=== PATIENT | male | born 1970 | race Two or more races ===

== ENCOUNTER 2021-06-04 11:55 | Inpatient (IN) | payer OTHER ==
[~2021-06-04] VITALS: Ht 185.4 cm; Wt 117.0 kg
[2021-06-04] MEDS ORDERED: cloNIDine HCL 0.1 MG TAB ONE (12:04)
[2021-06-04] MEDS ORDERED: cloNIDine HCL 0.1 MG TAB PO ONE (12:30)
[2021-06-04 15:16] LABS: Albumin 2.5 g/dL (3.4-5.0); Basophils # (auto) 0.1 10 ^3/uL (0-0.2); Basophils % (auto) 0.7 % (0.0-2.0); Calcium 7.6 mg/dL (8.5-10.1); Eosinophils # (auto) 0.1 10 ^3/uL (0-0.8); Eosinophils % (auto) 1.2 % (0.0-7.0); Hematocrit 39.1 % (41.0-53.0); Hemoglobin 12.8 g/dL (13.5-17.5); Lymphocytes % (auto) 9.3 % (10.0-50.0); Mean Corpuscular Hemoglobin 29.4 pg (28.0-32.0); Mean Corpuscular Hgb Conc. 32.9 g/dL (32.0-36.0); Mean Corpuscular Volume 89.5 fL (80.0-100.0); Monocytes # (auto) 0.6 10 ^3/uL (0-1.3); Monocytes % (auto) 6.1 % (0.0-12.0); Neutrophils # (auto) 8.6 10 ^3/uL (1.6-8.6); Neutrophils % (auto) 82.7 % (37.0-80.0); Nucleated Red Blood Cells % 0.1 %; Potassium 4.2 mmol/L (3.5-5.1); Red Blood Cells 4.37 10^6/uL (4.5-5.90); Red Cell Distribution Width 14.4 % (11.8-14.3); White Blood Cell 10.4 10^3/uL (4.4-10.8)
[2021-06-04 15:20] LABS: BUN/Creatinine Ratio 9.7; Bilirubin, Total 0.9 mg/dL (0.2-1.0); Total Protein 5.5 g/dL (6.4-8.2)
[2021-06-04 15:37] LABS: Urine Bacteria NONE SEEN /hpf (None Seen); Urine Blood 1+ /uL (Negative); Urine Hyaline Cast FEW /lpf (0 - 2); Urine Specific Gravity 1.012 (1.001-1.035); Urine WBC 2 /hpf (0 - 3)
[2021-06-04] MEDS ORDERED: ACETAMINOPHEN 325 MG TAB PO PRN (22:30)
[2021-06-04] MEDS ORDERED: ONDANSETRON HCL 4 MG/2 ML VIAL IV PRN (22:30)
[2021-06-05] MEDS: cloNIDine HCL 0.1 MG TAB PO PRN (00:47)
[2021-06-05 03:41] VITALS: BP 155/104
[2021-06-05] MEDS ORDERED: LISI-716 PO (04:02)
[2021-06-05] MEDS ORDERED: ATOR10TA PO (04:02)
[2021-06-05 05:30] VITALS: BP 148/88
[2021-06-05 06:12] LABS: Basophils # (auto) 0 10 ^3/uL (0-0.2); Basophils % (auto) 0.4 % (0.0-2.0); Eosinophils # (auto) 0.1 10 ^3/uL (0-0.8); Eosinophils % (auto) 1.3 % (0.0-7.0); Hematocrit 35.5 % (41.0-53.0); Hemoglobin 11.8 g/dL (13.5-17.5); Lymphocytes # (auto) 0.7 10 ^3/uL (0.4-5.4); Lymphocytes % (auto) 8.7 % (10.0-50.0); Mean Corpuscular Hemoglobin 29.5 pg (28.0-32.0); Mean Corpuscular Hgb Conc. 33.2 g/dL (32.0-36.0); Mean Corpuscular Volume 88.7 fL (80.0-100.0); Monocytes # (auto) 0.6 10 ^3/uL (0-1.3); Neutrophils # (auto) 7.1 10 ^3/uL (1.6-8.6); Neutrophils % (auto) 82.6 % (37.0-80.0); Nucleated Red Blood Cells % 0.1 %; Red Cell Distribution Width 14.3 % (11.8-14.3); White Blood Cell 8.6 10^3/uL (4.4-10.8)
[2021-06-05 06:43] LABS: BUN/Creatinine Ratio 9.9; Bilirubin, Total 0.6 mg/dL (0.2-1.0); Calcium 7.5 mg/dL (8.5-10.1); Total Protein 4.8 g/dL (6.4-8.2)
[2021-06-05 09:04] VITALS: BP 152/91
[2021-06-05] MEDS: amLODIPine BESYLATE 5 MG TAB PO SCH (09:18)
[2021-06-05] MEDS: PANTOPRAZOLE 40 MG TAB PO SCH (09:18)
[2021-06-05 13:00] VITALS: BP 145/82
[2021-06-05 16:30] VITALS: BP 149/88
[2021-06-05 18:53] LABS: Amphetamine Screen, Urine NEGATIVE (NEGATIVE); Barbiturate Scree,Urine NEGATIVE (NEGATIVE); Benzodiazephine Screen, Urine NEGATIVE (NEGATIVE); Cannabinoid Screen, Urine NEGATIVE (NEGATIVE); Cocaine Screen, Urine NEGATIVE (NEGATIVE); Opiate Scree,Urine NEGATIVE (NEGATIVE); Phencyclidine Screen, Urine NEGATIVE (NEGATIVE)
[2021-06-05 22:00] VITALS: BP 154/90
[2021-06-06 05:00] VITALS: BP 165/88
[2021-06-06] MEDS: cloNIDine HCL 0.1 MG TAB PO PRN ×2 (05:29→17:33)
[2021-06-06 06:29] LABS: Basophils # (auto) 0 10 ^3/uL (0-0.2); Basophils % (auto) 0.4 % (0.0-2.0); Eosinophils # (auto) 0 10 ^3/uL (0-0.8); Eosinophils % (auto) 0.4 % (0.0-7.0); Hematocrit 36.7 % (41.0-53.0); Hemoglobin 12.1 g/dL (13.5-17.5); Lymphocytes # (auto) 0.9 10 ^3/uL (0.4-5.4); Lymphocytes % (auto) 10.9 % (10.0-50.0); Mean Corpuscular Hemoglobin 29.3 pg (28.0-32.0); Mean Corpuscular Hgb Conc. 33.1 g/dL (32.0-36.0); Mean Corpuscular Volume 88.7 fL (80.0-100.0); Monocytes # (auto) 0.9 10 ^3/uL (0-1.3); Monocytes % (auto) 11.9 % (0.0-12.0); Neutrophils # (auto) 6.1 10 ^3/uL (1.6-8.6); Neutrophils % (auto) 76.4 % (37.0-80.0); Nucleated Red Blood Cells % 0.2 %; Red Blood Cells 4.14 10^6/uL (4.5-5.90); Red Cell Distribution Width 14.5 % (11.8-14.3)
[2021-06-06 07:13] LABS: Potassium 3.9 mmol/L (3.5-5.1)
[2021-06-06 07:23] LABS: BUN/Creatinine Ratio 8.6; Calcium 7.6 mg/dL (8.5-10.1)
[2021-06-06 09:00] VITALS: BP 156/81
[2021-06-06] MEDS: PANTOPRAZOLE 40 MG TAB PO SCH (09:25)
[2021-06-06] MEDS: amLODIPine BESYLATE 5 MG TAB PO SCH (09:26)
[2021-06-06 09:59] LABS: Protein, Urine 371.9 mg/dL (0.0-11.9)
[2021-06-06] MEDS: ALBUMIN 25% 50 ML IV SCH ×2 (11:13→18:37)
[2021-06-06 13:00] VITALS: BP 152/72
[2021-06-06] MEDS: FUROSEMIDE 40 MG/4 ML VIAL IV SCH ×2 (14:05→21:48)
[2021-06-06] MEDS: guaiFENesin-DM 100/10mg/5ml SYR PO PRN (18:37)
[2021-06-06] MEDS: CARVEDILOL 3.125 MG TAB PO SCH (21:48)
[2021-06-06 22:00] VITALS: BP 152/82
[2021-06-07 05:00] VITALS: BP 157/79
[2021-06-07] MEDS: FUROSEMIDE 40 MG/4 ML VIAL IV SCH ×3 (06:03→22:11)
[2021-06-07 06:08] LABS: Potassium 3.8 mmol/L (3.5-5.1)
[2021-06-07 06:12] LABS: BUN/Creatinine Ratio 8.6
[2021-06-07 09:00] VITALS: BP 148/76
[2021-06-07] MEDS: PANTOPRAZOLE 40 MG TAB PO SCH (09:26)
[2021-06-07] MEDS: amLODIPine BESYLATE 5 MG TAB PO SCH (09:26)
[2021-06-07] MEDS: CARVEDILOL 3.125 MG TAB PO SCH ×2 (09:27→22:13)
[2021-06-07] MEDS: guaiFENesin-DM 100/10mg/5ml SYR PO PRN ×2 (09:34→22:14)
[2021-06-07 13:00] VITALS: BP 143/90
[2021-06-07 17:00] VITALS: BP 137/66
[2021-06-07] MEDS ORDERED: VANCOMYCIN 1GM/250ML 0 ML IV ONE (20:35)
[2021-06-07 22:00] VITALS: BP 151/79
[2021-06-08 05:00] VITALS: BP 156/67
[2021-06-08 05:26] LABS: Calcium 7.8 mg/dL (8.5-10.1); Potassium 3.4 mmol/L (3.5-5.1)
[2021-06-08 05:31] LABS: BUN/Creatinine Ratio 8.9
[2021-06-08 09:00] VITALS: BP 151/81
[2021-06-08] MEDS: amLODIPine BESYLATE 5 MG TAB PO SCH (09:28)
[2021-06-08] MEDS: CARVEDILOL 3.125 MG TAB PO SCH ×2 (09:29→22:17)
[2021-06-08] MEDS: PANTOPRAZOLE 40 MG TAB PO SCH (09:30)
[2021-06-08] MEDS: FUROSEMIDE 40 MG/4 ML VIAL IV SCH (09:30)
[2021-06-08] MEDS: guaiFENesin-DM 100/10mg/5ml SYR PO PRN (09:30)
[2021-06-08 13:00] VITALS: BP 153/79
[2021-06-08 17:17] VITALS: BP 141/81
[2021-06-08] MEDS: FUROSEMIDE 40 MG TAB PO SCH (17:29)
[2021-06-08 22:00] VITALS: BP 144/77
[2021-06-09] MEDS: cloNIDine HCL 0.1 MG TAB PO PRN (00:09)
[2021-06-09 05:00] VITALS: BP 157/88
[2021-06-09] MEDS: FUROSEMIDE 40 MG TAB PO SCH ×2 (05:47→18:25)
[2021-06-09 06:14] LABS: Potassium 3.4 mmol/L (3.5-5.1)
[2021-06-09 06:27] LABS: BUN/Creatinine Ratio 8.7; Calcium 7.9 mg/dL (8.5-10.1)
[2021-06-09 08:59] VITALS: BP 158/85
[2021-06-09] MEDS: CARVEDILOL 3.125 MG TAB PO SCH ×2 (09:03→21:25)
[2021-06-09] MEDS: PANTOPRAZOLE 40 MG TAB PO SCH (09:03)
[2021-06-09] MEDS: amLODIPine BESYLATE 5 MG TAB PO SCH (09:03)
[2021-06-09 13:30] VITALS: BP 142/92
[2021-06-09 16:30] VITALS: BP 147/85
[2021-06-09 22:00] VITALS: BP 166/96
[2021-06-10 05:00] VITALS: BP 156/81
[2021-06-10] MEDS: FUROSEMIDE 40 MG TAB PO SCH ×2 (05:43→18:08)
[2021-06-10 09:18] VITALS: BP 155/81
[2021-06-10] MEDS: PANTOPRAZOLE 40 MG TAB PO SCH (10:00)
[2021-06-10] MEDS: amLODIPine BESYLATE 5 MG TAB PO SCH (10:00)
[2021-06-10] MEDS: CARVEDILOL 3.125 MG TAB PO SCH ×2 (10:01→22:54)
[2021-06-10 13:19] VITALS: BP 155/89
[2021-06-10] MEDS ORDERED: ERGOCALCIFEROL 50,000 UNIT(1.25MG) CAP PO SCH (16:15)
[2021-06-10 17:30] VITALS: BP 158/81
[2021-06-10 22:00] VITALS: BP 149/82
[2021-06-11 05:20] VITALS: BP 153/79
[2021-06-11] MEDS: FUROSEMIDE 40 MG TAB PO SCH ×2 (06:16→17:41)
[2021-06-11 09:00] VITALS: BP 145/100
[2021-06-11] MEDS: CARVEDILOL 3.125 MG TAB PO SCH ×2 (09:41→22:26)
[2021-06-11] MEDS: PANTOPRAZOLE 40 MG TAB PO SCH (09:42)
[2021-06-11] MEDS: amLODIPine BESYLATE 5 MG TAB PO SCH (09:42)
[2021-06-11 13:01] VITALS: BP 148/93
[2021-06-11 13:01] LABS: % Iron Saturation 31.5 % (20-55)
[2021-06-11 13:50] LABS: Albumin 2.4 g/dL (3.4-5.0); Calcium 7.9 mg/dL (8.5-10.1); Potassium 3.5 mmol/L (3.5-5.1)
[2021-06-11 14:09] LABS: BUN/Creatinine Ratio 8.7; Bilirubin, Total 0.8 mg/dL (0.2-1.0); Phosphorus 3.4 mg/dL (2.5-4.90); Total Protein 5.7 g/dL (6.4-8.2)
[2021-06-11 17:17] VITALS: BP 158/77
[2021-06-11 22:00] VITALS: BP 139/78
[2021-06-11] MEDS: SODIUM CHLORIDE 0.9% 1,000 ML IV SCH (22:25)
[2021-06-12 05:00] VITALS: BP 139/75
[2021-06-12] MEDS: FUROSEMIDE 40 MG TAB PO SCH ×2 (05:51→17:59)
[2021-06-12 07:01] LABS: BUN/Creatinine Ratio 8.4; Calcium 7.4 mg/dL (8.5-10.1); Potassium 3.3 mmol/L (3.5-5.1)
[2021-06-12] MEDS: SODIUM CHLORIDE 0.9% 1,000 ML IV SCH ×2 (08:05→21:25)
[2021-06-12 09:00] VITALS: BP 145/95
[2021-06-12] MEDS: CARVEDILOL 3.125 MG TAB PO SCH ×2 (10:29→21:22)
[2021-06-12] MEDS: amLODIPine BESYLATE 5 MG TAB PO SCH (10:29)
[2021-06-12] MEDS: PANTOPRAZOLE 40 MG TAB PO SCH (10:29)
[2021-06-12 12:34] VITALS: BP 134/89
[2021-06-12 16:41] VITALS: BP 148/91
[2021-06-12 21:57] VITALS: BP 134/60
[2021-06-13 05:00] VITALS: BP 151/88
[2021-06-13] MEDS: FUROSEMIDE 40 MG TAB PO SCH ×2 (05:44→18:00)
[2021-06-13 08:54] VITALS: BP 131/81
[2021-06-13] MEDS: CARVEDILOL 3.125 MG TAB PO SCH (09:52)
[2021-06-13] MEDS: amLODIPine BESYLATE 5 MG TAB PO SCH (09:53)
[2021-06-13] MEDS: PANTOPRAZOLE 40 MG TAB PO SCH (09:53)
[2021-06-13] MEDS: SODIUM CHLORIDE 0.9% 1,000 ML IV SCH (10:45)
[2021-06-13] MEDS ORDERED: POTASSIUM EFFERVESENT TAB 25 MEQ PO ONE (11:30)
[2021-06-13 13:00] VITALS: BP_SYST 126; BP_SYST 135; BP_DIAS 74; BP_DIAS 75
[2021-06-13 17:00] VITALS: BP 158/87
[2021-06-13 17:44] VITALS: BP 131/81
== END 2021-06-13 18:11 | disposition home or self-care (01) | DRG 682 ==
LOC: ER 11:55 → OVERFLOW 22:19 → WEST WING 23:43
PROVIDERS: ADMIT Nurse Practitioner; ATTEND Internal Medicine
DX: N17.9 Acute kidney failure, unspecified (principal); E43 Unspecified severe protein-calorie malnutrition; I11.0 Hypertensive heart disease with heart failure; Z68.33 Body mass index [BMI] 33.0-33.9, adult; E78.00 Pure hypercholesterolemia, unspecified; E11.9 Type 2 diabetes mellitus without complications; I50.9 Heart failure, unspecified; Z20.822 Contact with and (suspected) exposure to COVID-19; E66.01 Morbid (severe) obesity due to excess calories; E11.40 Type 2 diabetes mellitus with diabetic neuropathy, unspecified; F19.10 Other psychoactive substance abuse, uncomplicated; E78.5 Hyperlipidemia, unspecified; R80.9 Proteinuria, unspecified; N04.9 Nephrotic syndrome with unspecified morphologic changes; E55.9 Vitamin D deficiency, unspecified; E87.6 Hypokalemia; Z72.0 Tobacco use; Z68.38 Body mass index [BMI] 38.0-38.9, adult; Z83.3 Family history of diabetes mellitus
CPT/HCPCS: 36415; 71045; 73090; 76775; 80048; 80053; 80061; 80307; 81001; 82306; 82570; 83036; 83520; 83540; 83550; 83880; 83970; 84100; 84156; 84484; 85025; 86038; 86160; 86256; 87426; 93005; 93306; G0378; J2405

== ENCOUNTER 2021-12-04 11:19 | Inpatient (IN) | payer MEDICAID, OTHER ==
[~2021-12-04] VITALS: Ht 185.4 cm; Wt 110.8 kg
[~2021-12-04 11:19] MED LIST: ATOR10TA PO; LISI-716 PO
[2021-12-04] MEDS ORDERED: cefTRIAXone 1GM/50ML D5W 50 ML IV ONE (12:30)
[2021-12-04 12:41] LABS: Basophils # (auto) 0 10 ^3/uL (0-0.2); Basophils % (auto) 0.3 % (0.0-2.0); Eosinophils # (auto) 0.2 10 ^3/uL (0-0.8); Eosinophils % (auto) 1.3 % (0.0-7.0); Hematocrit 31.1 % (41.0-53.0); Hemoglobin 10.1 g/dL (13.5-17.5); Lymphocytes # (auto) 0.7 10 ^3/uL (0.4-5.4); Lymphocytes % (auto) 4.7 % (10.0-50.0); Mean Corpuscular Hemoglobin 28.4 pg (28.0-32.0); Mean Corpuscular Hgb Conc. 32.5 g/dL (32.0-36.0); Mean Corpuscular Volume 87.2 fL (80.0-100.0); Monocytes # (auto) 1.1 10 ^3/uL (0-1.3); Monocytes % (auto) 7.2 % (0.0-12.0); Neutrophils # (auto) 12.9 10 ^3/uL (1.6-8.6); Neutrophils % (auto) 86.5 % (37.0-80.0); Red Blood Cells 3.57 10^6/uL (4.5-5.90); Red Cell Distribution Width 13.2 % (11.8-14.3); White Blood Cell 14.9 10^3/uL (4.4-10.8)
[2021-12-04 12:55] LABS: Albumin 2.7 g/dL (3.4-5.0); BUN/Creatinine Ratio 12.7; Calcium 8.8 mg/dL (8.5-10.1); Potassium 4.7 mmol/L (3.5-5.1)
[2021-12-04 12:58] LABS: Bilirubin, Total 0.5 mg/dL (0.2-1.0); Total Protein 7.3 g/dL (6.4-8.2)
[2021-12-04] MEDS ORDERED: DEXTROSE (50%) 50ML SYRG IV PRN (13:45)
[2021-12-04] MEDS ORDERED: TEMAZEPAM 15 MG CAP PO PRN (13:45)
[2021-12-04] MEDS ORDERED: HYDROcodone-ACET 5/325MG TAB PO PRN (13:45)
[2021-12-04] MEDS ORDERED: ONDANSETRON HCL 4 MG/2 ML VIAL IV PRN (13:45)
[2021-12-04] MEDS ORDERED: DOCUSATE SOD 100 MG CAP PO PRN (13:45)
[2021-12-04] MEDS ORDERED: NITROGLYCERIN 0.4 MG SL TAB SL PRN (13:45)
[2021-12-04] MEDS ORDERED: MORPHINE SULFATE INJ 2 MG/ml SYRG IV PRN (13:45)
[2021-12-04] MEDS ORDERED: ACETAMINOPHEN 325 MG TAB PO PRN (13:45)
[2021-12-04] MEDS: PIPERACILLIN-TAZOB 2.25GM 50 ML IV SCH ×2 (16:00→21:38)
[2021-12-04] MEDS: InsuLIN REG 1unit/0.01ml Soln (100units/ml) SC SCH ×2 (17:00→22:13)
[2021-12-04] MEDS: ACCU-CHEK COMFORT CURVE STRIP VI SCH ×2 (17:18→22:14)
[2021-12-04] MEDS: ASCORBIC ACID 500 MG TAB PO SCH (21:37)
[2021-12-04 23:43] VITALS: BP 165/82
[2021-12-05 05:13] LABS: Basophils # (auto) 0 10 ^3/uL (0-0.2); Basophils % (auto) 0.2 % (0.0-2.0); Eosinophils # (auto) 0.2 10 ^3/uL (0-0.8); Eosinophils % (auto) 1.3 % (0.0-7.0); Hematocrit 29.2 % (41.0-53.0); Hemoglobin 9.7 g/dL (13.5-17.5); Lymphocytes # (auto) 0.9 10 ^3/uL (0.4-5.4); Lymphocytes % (auto) 6.4 % (10.0-50.0); Mean Corpuscular Hemoglobin 28.5 pg (28.0-32.0); Mean Corpuscular Hgb Conc. 33.2 g/dL (32.0-36.0); Mean Corpuscular Volume 86.1 fL (80.0-100.0); Monocytes # (auto) 1.2 10 ^3/uL (0-1.3); Monocytes % (auto) 8.5 % (0.0-12.0); Neutrophils # (auto) 11.5 10 ^3/uL (1.6-8.6); Neutrophils % (auto) 83.6 % (37.0-80.0); Red Blood Cells 3.39 10^6/uL (4.5-5.90); Red Cell Distribution Width 13.3 % (11.8-14.3); White Blood Cell 13.8 10^3/uL (4.4-10.8)
[2021-12-05 05:30] VITALS: BP 172/84
[2021-12-05 05:32] LABS: Potassium 4.5 mmol/L (3.5-5.1)
[2021-12-05 05:38] LABS: Albumin 2.3 g/dL (3.4-5.0); Bilirubin, Total 0.6 mg/dL (0.2-1.0); Calcium 8.6 mg/dL (8.5-10.1); Total Protein 6.5 g/dL (6.4-8.2)
[2021-12-05] MEDS: InsuLIN REG 1unit/0.01ml Soln (100units/ml) SC SCH ×4 (06:17→22:00)
[2021-12-05] MEDS: PIPERACILLIN-TAZOB 2.25GM 50 ML IV SCH ×3 (06:18→22:35)
[2021-12-05] MEDS: ACCU-CHEK COMFORT CURVE STRIP VI SCH ×4 (06:18→22:00)
[2021-12-05 09:00] VITALS: BP 150/74
[2021-12-05] MEDS ORDERED: VANCOMYCIN PER PHARMACY 0 MG IV SCH (09:15)
[2021-12-05] MEDS: ZINC SULFATE 220mg CAP or TAB PO SCH (09:17)
[2021-12-05] MEDS: MULTIPLE VITAMIN TAB PO SCH (09:17)
[2021-12-05] MEDS: ASCORBIC ACID 500 MG TAB PO SCH ×2 (09:18→22:35)
[2021-12-05] MEDS: PANTOPRAZOLE 40 MG TAB PO SCH (09:22)
[2021-12-05] MEDS: amLODIPine BESYLATE 5 MG TAB PO SCH (09:22)
[2021-12-05] MEDS: HEPARIN SODIUM (PORCINE) 5000 UNITS/ML 1ML VIAL SC SCH ×2 (09:23→22:36)
[2021-12-05] MEDS: VANCOMYCIN 1GM/250ML 250 ML IV SCH (11:13)
[2021-12-05 13:00] VITALS: BP 128/73
[2021-12-05 22:00] VITALS: BP 140/65
[2021-12-05] MEDS ORDERED: LOPERAMIDE HCL 2 MG CAP/TAB PO PRN (22:00)
[2021-12-05] MEDS: ATORVASTATIN 20 MG TAB PO SCH (22:35)
[2021-12-06 05:00] VITALS: BP 162/85
[2021-12-06] MEDS: PIPERACILLIN-TAZOB 2.25GM 50 ML IV SCH ×3 (06:10→21:26)
[2021-12-06] MEDS: InsuLIN REG 1unit/0.01ml Soln (100units/ml) SC SCH ×4 (06:31→21:43)
[2021-12-06] MEDS: ACCU-CHEK COMFORT CURVE STRIP VI SCH ×4 (06:31→21:43)
[2021-12-06 08:25] LABS: Basophils # (auto) 0 10 ^3/uL (0-0.2); Basophils % (auto) 0.2 % (0.0-2.0); Eosinophils # (auto) 0.2 10 ^3/uL (0-0.8); Eosinophils % (auto) 1.9 % (0.0-7.0); Hematocrit 29.6 % (41.0-53.0); Hemoglobin 9.4 g/dL (13.5-17.5); Lymphocytes # (auto) 0.9 10 ^3/uL (0.4-5.4); Mean Corpuscular Hemoglobin 27.7 pg (28.0-32.0); Mean Corpuscular Hgb Conc. 31.9 g/dL (32.0-36.0); Mean Corpuscular Volume 86.9 fL (80.0-100.0); Monocytes # (auto) 1.1 10 ^3/uL (0-1.3); Monocytes % (auto) 8.3 % (0.0-12.0); Neutrophils # (auto) 10.6 10 ^3/uL (1.6-8.6); Neutrophils % (auto) 82.6 % (37.0-80.0); Red Cell Distribution Width 13.2 % (11.8-14.3); White Blood Cell 12.8 10^3/uL (4.4-10.8)
[2021-12-06 08:32] LABS: Calcium 8.4 mg/dL (8.5-10.1); Potassium 4.2 mmol/L (3.5-5.1)
[2021-12-06 08:40] LABS: Phosphorus 3.5 mg/dL (2.5-4.90); Uric Acid 7.3 mg/dL (3.5-7.2)
[2021-12-06 08:58] VITALS: BP 170/87
[2021-12-06] MEDS: VANCOMYCIN 1GM/250ML 250 ML IV SCH (09:48)
[2021-12-06] MEDS: MULTIPLE VITAMIN TAB PO SCH (09:50)
[2021-12-06] MEDS: ZINC SULFATE 220mg CAP or TAB PO SCH (09:50)
[2021-12-06] MEDS: ASCORBIC ACID 500 MG TAB PO SCH ×2 (09:51→21:26)
[2021-12-06] MEDS: PANTOPRAZOLE 40 MG TAB PO SCH (09:51)
[2021-12-06] MEDS: amLODIPine BESYLATE 5 MG TAB PO SCH (09:51)
[2021-12-06] MEDS: HEPARIN SODIUM (PORCINE) 5000 UNITS/ML 1ML VIAL SC SCH ×2 (10:13→21:41)
[2021-12-06] MEDS: METOPROLOL TARTRATE 25 MG TAB PO SCH ×2 (12:38→21:32)
[2021-12-06 13:00] VITALS: BP 150/79
[2021-12-06 17:21] VITALS: BP 152/73
[2021-12-06] MEDS: ATORVASTATIN 20 MG TAB PO SCH (21:27)
[2021-12-06 22:00] VITALS: BP 145/90
[2021-12-07 05:00] VITALS: BP 158/75
[2021-12-07] MEDS: PIPERACILLIN-TAZOB 2.25GM 50 ML IV SCH ×3 (05:17→22:05)
[2021-12-07] MEDS: ACCU-CHEK COMFORT CURVE STRIP VI SCH ×4 (06:41→22:23)
[2021-12-07] MEDS: InsuLIN REG 1unit/0.01ml Soln (100units/ml) SC SCH ×4 (06:42→22:24)
[2021-12-07 06:58] LABS: Basophils # (auto) 0 10 ^3/uL (0-0.2); Basophils % (auto) 0.4 % (0.0-2.0); Eosinophils # (auto) 0.4 10 ^3/uL (0-0.8); Eosinophils % (auto) 3.4 % (0.0-7.0); Hematocrit 27.6 % (41.0-53.0); Hemoglobin 8.9 g/dL (13.5-17.5); Lymphocytes # (auto) 1.2 10 ^3/uL (0.4-5.4); Lymphocytes % (auto) 8.9 % (10.0-50.0); Mean Corpuscular Hemoglobin 27.7 pg (28.0-32.0); Mean Corpuscular Hgb Conc. 32.2 g/dL (32.0-36.0); Mean Corpuscular Volume 86.1 fL (80.0-100.0); Monocytes # (auto) 1.2 10 ^3/uL (0-1.3); Monocytes % (auto) 8.8 % (0.0-12.0); Neutrophils # (auto) 10.2 10 ^3/uL (1.6-8.6); Neutrophils % (auto) 78.5 % (37.0-80.0); Red Blood Cells 3.21 10^6/uL (4.5-5.90); Red Cell Distribution Width 13.5 % (11.8-14.3)
[2021-12-07 07:11] LABS: Partial Thromboplastin Time 30.8 sec (23.6-33.0)
[2021-12-07 07:13] LABS: Calcium 8.4 mg/dL (8.5-10.1); Potassium 4.3 mmol/L (3.5-5.1)
[2021-12-07 07:22] LABS: BUN/Creatinine Ratio 10.6; Bilirubin, Total 0.3 mg/dL (0.2-1.0); Total Protein 6.1 g/dL (6.4-8.2)
[2021-12-07 08:00] VITALS: BP 136/75
[2021-12-07] MEDS ORDERED: ceFAZolin 1GM VL ONE (08:02)
[2021-12-07] MEDS ORDERED: LIDOCAINE 1%HCL (LOCAL ANESTH) 10 ML MDV ONE (08:02)
[2021-12-07] MEDS ORDERED: BUPIVACAINE 0.25% INJ 50ML VIAL ONE (08:02)
[2021-12-07] MEDS ORDERED: fentaNYL CITRATE 100 MCG/2 ML VL ONE (08:15)
[2021-12-07] MEDS ORDERED: MIDAZOLAM HCL 2MG/2ML 2ml VIAL (1mg/ml) ONE (08:15)
[2021-12-07] MEDS ORDERED: PROPOFOL 10 MG/ML 20 ML IV ONE ×4 (08:17→09:14)
[2021-12-07] MEDS ORDERED: ONDANSETRON HCL 4 MG/2 ML VIAL ONE (09:14)
[2021-12-07] MEDS ORDERED: ONDANSETRON HCL 4 MG/2 ML VIAL IV PRN (09:45)
[2021-12-07] MEDS ORDERED: HYDROmorphone HCL 2 MG/ML VL/or syr IV PRN ×2 (09:45)
[2021-12-07] MEDS ORDERED: ePHEDrine SULFATE 50 MG/ML AMP IV PRN (09:45)
[2021-12-07] MEDS: HEPARIN SODIUM (PORCINE) 5000 UNITS/ML 1ML VIAL SC SCH ×2 (10:00→22:22)
[2021-12-07] MEDS: METOPROLOL TARTRATE 25 MG TAB PO SCH ×2 (10:00→22:00)
[2021-12-07] MEDS: amLODIPine BESYLATE 5 MG TAB PO SCH (10:00)
[2021-12-07] MEDS: VANCOMYCIN 1GM/250ML 250 ML IV SCH (10:56)
[2021-12-07] MEDS: ASCORBIC ACID 500 MG TAB PO SCH ×2 (10:57→22:05)
[2021-12-07] MEDS: PANTOPRAZOLE 40 MG TAB PO SCH (10:57)
[2021-12-07] MEDS: ZINC SULFATE 220mg CAP or TAB PO SCH (10:57)
[2021-12-07] MEDS: MULTIPLE VITAMIN TAB PO SCH (10:57)
[2021-12-07 13:00] VITALS: BP 126/76
[2021-12-07 16:35] VITALS: BP 130/73
[2021-12-07] MEDS ORDERED: SODIUM CHLORIDE 0.9% 1,000 ML IV ONE ×2 (17:30)
[2021-12-07 20:00] VITALS: BP 134/53
[2021-12-07 22:00] VITALS: BP 134/53
[2021-12-07] MEDS: ATORVASTATIN 20 MG TAB PO SCH (22:15)
[2021-12-08 05:00] VITALS: BP 112/59
[2021-12-08] MEDS: PIPERACILLIN-TAZOB 2.25GM 50 ML IV SCH (06:18)
[2021-12-08] MEDS: ACCU-CHEK COMFORT CURVE STRIP VI SCH ×4 (06:54→22:50)
[2021-12-08] MEDS: InsuLIN REG 1unit/0.01ml Soln (100units/ml) SC SCH ×4 (06:55→22:47)
[2021-12-08 07:19] LABS: BUN/Creatinine Ratio 9.7; Potassium 4.6 mmol/L (3.5-5.1)
[2021-12-08 09:00] VITALS: BP 150/69
[2021-12-08] MEDS: METOPROLOL TARTRATE 25 MG TAB PO SCH ×2 (10:37→22:44)
[2021-12-08] MEDS: VANCOMYCIN 1GM/250ML 250 ML IV SCH (10:37)
[2021-12-08] MEDS: ZINC SULFATE 220mg CAP or TAB PO SCH (10:37)
[2021-12-08] MEDS: MULTIPLE VITAMIN TAB PO SCH (10:38)
[2021-12-08] MEDS: HEPARIN SODIUM (PORCINE) 5000 UNITS/ML 1ML VIAL SC SCH ×2 (10:38→22:46)
[2021-12-08] MEDS: ASCORBIC ACID 500 MG TAB PO SCH ×2 (10:38→22:44)
[2021-12-08] MEDS: amLODIPine BESYLATE 5 MG TAB PO SCH (10:38)
[2021-12-08] MEDS: PANTOPRAZOLE 40 MG TAB PO SCH (10:38)
[2021-12-08 13:00] VITALS: BP 132/69
[2021-12-08] MEDS: CEFEPIME 2 GM in SODIUM CHL 0.9% 50 ML IV SCH (15:32)
[2021-12-08 16:57] VITALS: BP 125/67
[2021-12-08] MEDS ORDERED: SODIUM CHLORIDE 0.9% 2,000 ML IV ONE (18:00)
[2021-12-08] MEDS ORDERED: VANCOMYCIN 1GM/250ML 250 ML IV SCH (22:00)
[2021-12-08] MEDS: ATORVASTATIN 20 MG TAB PO SCH (22:43)
[2021-12-09 00:08] VITALS: BP 143/78
[2021-12-09 06:30] LABS: Calcium 7.7 mg/dL (8.5-10.1); Potassium 4.6 mmol/L (3.5-5.1)
[2021-12-09 06:36] LABS: BUN/Creatinine Ratio 9.6; Bilirubin, Direct 0.1 mg/dL (0-0.2); Bilirubin, Total 0.3 mg/dL (0.2-1.0); Phosphorus 3.4 mg/dL (2.5-4.90); Total Protein 6.5 g/dL (6.4-8.2)
[2021-12-09 06:55] VITALS: BP 146/75
[2021-12-09] MEDS: InsuLIN REG 1unit/0.01ml Soln (100units/ml) SC SCH ×4 (07:06→21:19)
[2021-12-09] MEDS: ACCU-CHEK COMFORT CURVE STRIP VI SCH ×4 (07:07→21:20)
[2021-12-09 09:00] VITALS: BP 148/72
[2021-12-09] MEDS: ZINC SULFATE 220mg CAP or TAB PO SCH (09:18)
[2021-12-09] MEDS: MULTIPLE VITAMIN TAB PO SCH (09:18)
[2021-12-09] MEDS: PANTOPRAZOLE 40 MG TAB PO SCH (09:19)
[2021-12-09] MEDS: ASCORBIC ACID 500 MG TAB PO SCH ×2 (09:19→21:11)
[2021-12-09] MEDS: METOPROLOL TARTRATE 25 MG TAB PO SCH (09:24)
[2021-12-09] MEDS: amLODIPine BESYLATE 5 MG TAB PO SCH (09:24)
[2021-12-09] MEDS: HEPARIN SODIUM (PORCINE) 5000 UNITS/ML 1ML VIAL SC SCH ×2 (09:25→21:14)
[2021-12-09] MEDS ORDERED: METOPROLOL TARTRATE 25 MG TAB PO ONE (11:15)
[2021-12-09 15:57] LABS: Hepatitis C Antibody Negative (Negative)
[2021-12-09] MEDS: CEFEPIME 2 GM in SODIUM CHL 0.9% 50 ML IV SCH (16:31)
[2021-12-09 17:00] VITALS: BP 144/69
[2021-12-09] MEDS: ATORVASTATIN 20 MG TAB PO SCH (21:11)
[2021-12-09] MEDS: METOPROLOL TARTRATE 50 MG TAB PO SCH (21:12)
[2021-12-09 22:00] VITALS: BP 161/71
[2021-12-10 05:00] VITALS: BP 148/71
[2021-12-10 05:08] LABS: Basophils # (auto) 0 10 ^3/uL (0-0.2); Basophils % (auto) 0.5 % (0.0-2.0); Eosinophils # (auto) 0.4 10 ^3/uL (0-0.8); Eosinophils % (auto) 4.6 % (0.0-7.0); Hematocrit 22.2 % (41.0-53.0); Hemoglobin 7.3 g/dL (13.5-17.5); Lymphocytes # (auto) 1.3 10 ^3/uL (0.4-5.4); Lymphocytes % (auto) 15.2 % (10.0-50.0); Mean Corpuscular Hemoglobin 28.3 pg (28.0-32.0); Mean Corpuscular Hgb Conc. 32.7 g/dL (32.0-36.0); Mean Corpuscular Volume 86.3 fL (80.0-100.0); Monocytes # (auto) 0.7 10 ^3/uL (0-1.3); Monocytes % (auto) 8.1 % (0.0-12.0); Neutrophils # (auto) 6.3 10 ^3/uL (1.6-8.6); Neutrophils % (auto) 71.6 % (37.0-80.0); Nucleated Red Blood Cells % 0.2 %; Red Blood Cells 2.57 10^6/uL (4.5-5.90); Red Cell Distribution Width 13.7 % (11.8-14.3); White Blood Cell 8.9 10^3/uL (4.4-10.8)
[2021-12-10 05:28] LABS: BUN/Creatinine Ratio 9.6; Calcium 7.9 mg/dL (8.5-10.1); Magnesium 1.9 mg/dL (1.6-2.6); Phosphorus 3.5 mg/dL (2.5-4.90); Potassium 4.7 mmol/L (3.5-5.1)
[2021-12-10] MEDS: InsuLIN REG 1unit/0.01ml Soln (100units/ml) SC SCH ×4 (06:47→22:00)
[2021-12-10] MEDS: ACCU-CHEK COMFORT CURVE STRIP VI SCH ×4 (06:49→22:52)
[2021-12-10 09:00] VITALS: BP 155/70
[2021-12-10] MEDS: ZINC SULFATE 220mg CAP or TAB PO SCH (10:41)
[2021-12-10] MEDS: METOPROLOL TARTRATE 50 MG TAB PO SCH ×2 (10:41→22:46)
[2021-12-10] MEDS: MULTIPLE VITAMIN TAB PO SCH (10:42)
[2021-12-10] MEDS: amLODIPine BESYLATE 5 MG TAB PO SCH (10:44)
[2021-12-10] MEDS: PANTOPRAZOLE 40 MG TAB PO SCH (10:44)
[2021-12-10] MEDS: ASCORBIC ACID 500 MG TAB PO SCH ×2 (10:44→22:47)
[2021-12-10] MEDS: HEPARIN SODIUM (PORCINE) 5000 UNITS/ML 1ML VIAL SC SCH ×2 (10:45→22:49)
[2021-12-10] MEDS: DAKINS QUARTER STR 0.125% (NaHypochlorite) 473 ML TOPICAL SOL TOP SCH (10:46)
[2021-12-10 11:39] LABS: Urine Bacteria NONE SEEN /hpf (None Seen); Urine Blood Negative /uL (Negative); Urine Hyaline Cast FEW /lpf (0 - 2); Urine Specific Gravity 1.009 (1.001-1.035); Urine WBC <1 /hpf (0 - 3)
[2021-12-10 11:51] LABS: Protein, Urine 139.7 mg/dL (0.0-11.9)
[2021-12-10 12:50] VITALS: BP 161/73
[2021-12-10 16:30] VITALS: BP 172/90
[2021-12-10] MEDS ORDERED: VANCOMYCIN 1GM/250ML 250 ML IV SCH (17:00)
[2021-12-10] MEDS: CEFEPIME 2 GM in SODIUM CHL 0.9% 50 ML IV SCH (18:28)
[2021-12-10] MEDS: hydrALAZINE HCL 20 MG/ML VL IV PRN (18:36)
[2021-12-10 22:00] VITALS: BP 157/75
[2021-12-10] MEDS: ATORVASTATIN 20 MG TAB PO SCH (22:42)
[2021-12-11 05:21] VITALS: BP 163/75
[2021-12-11] MEDS: ACCU-CHEK COMFORT CURVE STRIP VI SCH ×2 (06:18→12:10)
[2021-12-11] MEDS: InsuLIN REG 1unit/0.01ml Soln (100units/ml) SC SCH ×2 (06:18→12:11)
[2021-12-11] MEDS: hydrALAZINE HCL 20 MG/ML VL IV PRN (06:19)
[2021-12-11 06:25] LABS: Basophils # (auto) 0 10 ^3/uL (0-0.2); Eosinophils # (auto) 0.3 10 ^3/uL (0-0.8); Monocytes # (auto) 0.6 10 ^3/uL (0-1.3); Nucleated Red Blood Cells % 0.3 %
[2021-12-11 06:28] LABS: Basophils % (auto) 0.4 % (0.0-2.0); Eosinophils % (auto) 3.3 % (0.0-7.0); Lymphocytes # (auto) 1.2 10 ^3/uL (0.4-5.4); Lymphocytes % (auto) 13.5 % (10.0-50.0); Mean Corpuscular Hemoglobin 28.7 pg (28.0-32.0); Mean Corpuscular Hgb Conc. 33.3 g/dL (32.0-36.0); Mean Corpuscular Volume 86.1 fL (80.0-100.0); Monocytes % (auto) 6.8 % (0.0-12.0); Neutrophils # (auto) 6.7 10 ^3/uL (1.6-8.6); Red Blood Cells 2.79 10^6/uL (4.5-5.90); Red Cell Distribution Width 13.7 % (11.8-14.3); White Blood Cell 8.8 10^3/uL (4.4-10.8)
[2021-12-11 06:46] LABS: Albumin 2.2 g/dL (3.4-5.0); Calcium 8.3 mg/dL (8.5-10.1); Potassium 4.7 mmol/L (3.5-5.1)
[2021-12-11 06:48] LABS: BUN/Creatinine Ratio 9.1
[2021-12-11 06:51] LABS: Bilirubin, Total 0.2 mg/dL (0.2-1.0); Total Protein 6.8 g/dL (6.4-8.2)
[2021-12-11 09:47] VITALS: BP 163/89
[2021-12-11] MEDS: ZINC SULFATE 220mg CAP or TAB PO SCH (10:43)
[2021-12-11] MEDS: ASCORBIC ACID 500 MG TAB PO SCH (10:44)
[2021-12-11] MEDS: METOPROLOL TARTRATE 50 MG TAB PO SCH (10:44)
[2021-12-11] MEDS: amLODIPine BESYLATE 5 MG TAB PO SCH (10:45)
[2021-12-11] MEDS: PANTOPRAZOLE 40 MG TAB PO SCH (10:45)
[2021-12-11] MEDS: MULTIPLE VITAMIN TAB PO SCH (10:45)
[2021-12-11] MEDS: HEPARIN SODIUM (PORCINE) 5000 UNITS/ML 1ML VIAL SC SCH (10:47)
[2021-12-11] MEDS: DAKINS QUARTER STR 0.125% (NaHypochlorite) 473 ML TOPICAL SOL TOP SCH (10:48)
[2021-12-11 12:41] VITALS: BP 175/76
[2021-12-11] MEDS ORDERED: MET50T PO (12:54)
[2021-12-11] MEDS ORDERED: HYDR-4902 PO (12:54)
[2021-12-11] MEDS ORDERED: AML5T PO (12:54)
[2021-12-11] MEDS ORDERED: DAKI0.12 TOP (12:54)
[2021-12-11] MEDS ORDERED: CIPR-173 PO (12:54)
[2021-12-11] MEDS ORDERED: PIO30T PO (12:59)
[2021-12-11] MEDS: CEFEPIME 2 GM in SODIUM CHL 0.9% 50 ML IV SCH (15:03)
== END 2021-12-11 17:09 | disposition home or self-care (01) | DRG 710 ==
LOC: ER 11:19 → TELE 13:39 → TELE-WESTW 19:57
PROVIDERS: ADMIT Nurse Practitioner; ATTEND Nurse Practitioner
PROC: 0Y6N0ZF Detachment at Left Foot, Partial 5th Ray, Open Approach (ICD-10-PCS; principal; 2021-12-07 08:47)
DX: A41.9 Sepsis, unspecified organism (principal); N17.0 Acute kidney failure with tubular necrosis; A48.0 Gas gangrene; E44.0 Moderate protein-calorie malnutrition; E11.52 Type 2 diabetes mellitus with diabetic peripheral angiopathy with gangrene; L03.116 Cellulitis of left lower limb; D63.1 Anemia in chronic kidney disease; N18.4 Chronic kidney disease, stage 4 (severe); M86.8X7 Other osteomyelitis, ankle and foot; L02.612 Cutaneous abscess of left foot; E11.22 Type 2 diabetes mellitus with diabetic chronic kidney disease; E11.69 Type 2 diabetes mellitus with other specified complication; I12.9 Hypertensive chronic kidney disease with stage 1 through stage 4 chronic kidney disease, or unspecified chronic kidney disease; Z20.822 Contact with and (suspected) exposure to COVID-19; E11.65 Type 2 diabetes mellitus with hyperglycemia; E55.9 Vitamin D deficiency, unspecified; E78.5 Hyperlipidemia, unspecified; Z83.3 Family history of diabetes mellitus; Z68.31 Body mass index [BMI] 31.0-31.9, adult
CPT/HCPCS: 36415; 71045; 73630; 73700; 73718; 76775; 80048; 80053; 80061; 80076; 80202; 81001; 82306; 82550; 82565; 82570; 82962; 83036; 83605; 83735; 83970; 84100; 84156; 84300; 84550; 85025; 85610; 85730; 86803; 86850; 86900; 86901; 87040; 87070; 87075; 87077; 87186; 87205; 87340; 96365; G0378; J0690; J0696; J1815; J2001; J2250; J2405; J2543; J2704; J3490

== ENCOUNTER 2022-03-06 20:46 | Emergency (ER) | payer MEDICAID ==
[~2022-03-06] VITALS: Ht 185.4 cm; Wt 118.5 kg
[2022-03-06 20:46] VITALS: BP 170/99
[~2022-03-06 20:46] MED LIST changes: +AML5T PO; +CIPR-173 PO; +DAKI0.12 TOP; +HYDR-4902 PO; -LISI-716 PO; +MET50T PO; +PIO30T PO
[2022-03-06 21:57] LABS: Urine Bacteria NONE SEEN /hpf (None Seen); Urine Blood 2+ /uL (Negative); Urine Specific Gravity 1.017 (1.001-1.035); Urine WBC 7 /hpf (0 - 3)
[2022-03-06 21:58] LABS: Basophils # (auto) 0.1 10 ^3/uL (0-0.2); Hemoglobin 11.2 g/dL (13.5-17.5); Lymphocytes # (auto) 1.2 10 ^3/uL (0.4-5.4); Mean Corpuscular Hemoglobin 26.3 pg (28.0-32.0); Monocytes # (auto) 0.8 10 ^3/uL (0-1.3); Nucleated Red Blood Cells % 0.1 %
[2022-03-06 22:00] LABS: Basophils % (auto) 0.6 % (0.0-2.0); Eosinophils # (auto) 0.3 10 ^3/uL (0-0.8); Eosinophils % (auto) 2.6 % (0.0-7.0); Hematocrit 36.3 % (41.0-53.0); Lymphocytes % (auto) 10.8 % (10.0-50.0); Monocytes % (auto) 6.9 % (0.0-12.0); Neutrophils % (auto) 79.1 % (37.0-80.0); Red Blood Cells 4.27 10^6/uL (4.5-5.90); Red Cell Distribution Width 17.6 % (11.8-14.3); White Blood Cell 11.4 10^3/uL (4.4-10.8)
[2022-03-06 22:19] LABS: Albumin 2.8 g/dL (3.4-5.0); BUN/Creatinine Ratio 6.4; Calcium 7.8 mg/dL (8.5-10.1); Potassium 4.5 mmol/L (3.5-5.1)
[2022-03-06 22:22] LABS: Bilirubin, Total 0.8 mg/dL (0.2-1.0); Total Protein 6.3 g/dL (6.4-8.2)
== END 2022-03-07 00:41 | disposition left against medical advice (07) ==
LOC: ER 20:46
DX: E79.0 Hyperuricemia without signs of inflammatory arthritis and tophaceous disease (principal); Z53.21 Procedure and treatment not carried out due to patient leaving prior to being seen by health care provider
CPT/HCPCS: 36415; 80053; 81001; 85025

== ENCOUNTER 2022-03-09 21:05 | Inpatient (IN) | payer MEDICAID ==
[~2022-03-09] VITALS: Ht 182.9 cm; Wt 124.8 kg
[2022-03-10] MEDS ORDERED: SODIUM CHLORIDE 0.9% 1,000 ML IV ONE ×2 (07:15)
[2022-03-10] MEDS ORDERED: cloNIDine HCL 0.1 MG TAB PO ONE (07:15)
[2022-03-10 07:26] LABS: Basophils # (auto) 0.1 10 ^3/uL (0-0.2); Basophils % (auto) 0.9 % (0.0-2.0); Eosinophils # (auto) 0.2 10 ^3/uL (0-0.8); Eosinophils % (auto) 1.8 % (0.0-7.0); Hematocrit 35.9 % (41.0-53.0); Hemoglobin 11.2 g/dL (13.5-17.5); Lymphocytes # (auto) 1.9 10 ^3/uL (0.4-5.4); Lymphocytes % (auto) 15.3 % (10.0-50.0); Mean Corpuscular Hemoglobin 26.4 pg (28.0-32.0); Mean Corpuscular Hgb Conc. 31.1 g/dL (32.0-36.0); Mean Corpuscular Volume 84.8 fL (80.0-100.0); Monocytes # (auto) 0.8 10 ^3/uL (0-1.3); Monocytes % (auto) 6.2 % (0.0-12.0); Neutrophils # (auto) 9.3 10 ^3/uL (1.6-8.6); Neutrophils % (auto) 75.8 % (37.0-80.0); Nucleated Red Blood Cells % 0.1 %; Red Blood Cells 4.23 10^6/uL (4.5-5.90); Red Cell Distribution Width 17.3 % (11.8-14.3); White Blood Cell 12.3 10^3/uL (4.4-10.8)
[2022-03-10 07:32] LABS: Albumin 2.9 g/dL (3.4-5.0); Potassium 4.3 mmol/L (3.5-5.1)
[2022-03-10 07:35] LABS: BUN/Creatinine Ratio 7.2; Bilirubin, Total 0.9 mg/dL (0.2-1.0); Total Protein 6.5 g/dL (6.4-8.2)
[2022-03-10 08:24] LABS: Urine Bacteria FEW /hpf (None Seen); Urine Blood 2+ /uL (Negative); Urine WBC 7 /hpf (0 - 3)
[2022-03-10 10:34] LABS: % Iron Saturation 24.1 % (20-55)
[2022-03-10] MEDS ORDERED: ACETAMINOPHEN 325 MG TAB PO PRN (12:00)
[2022-03-10] MEDS ORDERED: DOCUSATE SOD 100 MG CAP PO PRN (12:00)
[2022-03-10] MEDS ORDERED: HYDROcodone-ACET 5/325MG TAB PO PRN (12:00)
[2022-03-10] MEDS ORDERED: MORPHINE SULFATE INJ 2 MG/ml SYRG IV PRN ×2 (12:00)
[2022-03-10] MEDS ORDERED: NITROGLYCERIN 0.4 MG SL TAB SL PRN (12:00)
[2022-03-10] MEDS ORDERED: VANCOMYCIN PER PHARMACY 0 MG IV SCH (12:15)
[2022-03-10] MEDS ORDERED: hydrALAZINE HCL 25 MG TAB PO SCH (12:45)
[2022-03-10] MEDS ORDERED: ISOSORBIDE MONONITRATE ER 60 MG TAB PO SCH (12:45)
[2022-03-10] MEDS ORDERED: VANCOMYCIN 1GM/250ML 250 ML IV ONE (13:00)
[2022-03-10 13:27] LABS: Protein, Urine 694.1 mg/dL (0.0-11.9)
[2022-03-10] MEDS: SODIUM CHLORIDE 0.9% 1,000 ML IV SCH ×2 (15:17→23:41)
[2022-03-10] MEDS: ISOSORBIDE MONONITRATE ER 60 MG TAB PO SCH (16:34)
[2022-03-10] MEDS ORDERED: DEXTROSE (50%) 50ML SYRG IV PRN (16:45)
[2022-03-10] MEDS ORDERED: METOPROLOL TARTRATE 1MG/1ML-5ML VIAL IV ONE (16:45)
[2022-03-10] MEDS ORDERED: hydrALAZINE HCL 20 MG/ML VL IV PRN (16:45)
[2022-03-10] MEDS: InsuLIN REG 1unit/0.01ml Soln (100units/ml) SC SCH ×2 (17:00→23:07)
[2022-03-10] MEDS: ACCU-CHEK COMFORT CURVE STRIP VI SCH ×2 (17:00→22:00)
[2022-03-10 17:11] LABS: Phosphorus 2.9 mg/dL (2.5-4.90)
[2022-03-10] MEDS: hydrALAZINE HCL 25 MG TAB PO SCH ×2 (18:53→23:41)
[2022-03-10] MEDS ORDERED: FUROSEMIDE 100 MG/10ML VIAL IV ONE (19:00)
[2022-03-10 19:21] LABS: INR 1.03 (0.9-1.15)
[2022-03-10] MEDS ORDERED: ATORVASTATIN 20 MG TAB PO SCH (22:00)
[2022-03-10] MEDS: METOPROLOL TARTRATE 50 MG TAB PO SCH (22:00)
[2022-03-10] MEDS: DAKINS QUARTER STR 0.125% (NaHypochlorite) 473 ML TOPICAL SOL TOP SCH (22:00)
[2022-03-10 23:47] VITALS: BP_SYST 140; BP_DIAS 80; BP_DIAS 85
[2022-03-11 05:00] VITALS: BP 157/99
[2022-03-11] MEDS: InsuLIN REG 1unit/0.01ml Soln (100units/ml) SC SCH ×4 (06:07→21:43)
[2022-03-11] MEDS: ACCU-CHEK COMFORT CURVE STRIP VI SCH ×4 (06:07→21:42)
[2022-03-11] MEDS: hydrALAZINE HCL 25 MG TAB PO SCH ×4 (06:17→23:01)
[2022-03-11 06:32] LABS: Albumin 2.2 g/dL (3.4-5.0); BUN/Creatinine Ratio 7.8; Calcium 7.5 mg/dL (8.5-10.1); Potassium 4.1 mmol/L (3.5-5.1)
[2022-03-11 06:35] LABS: Bilirubin, Total 0.9 mg/dL (0.2-1.0); Total Protein 5.4 g/dL (6.4-8.2)
[2022-03-11 06:56] LABS: Basophils # (auto) 0.1 10 ^3/uL (0-0.2); Basophils % (auto) 0.7 % (0.0-2.0); Eosinophils # (auto) 0.2 10 ^3/uL (0-0.8); Eosinophils % (auto) 2.1 % (0.0-7.0); Hematocrit 32.3 % (41.0-53.0); Hemoglobin 10.2 g/dL (13.5-17.5); Lymphocytes # (auto) 1.6 10 ^3/uL (0.4-5.4); Mean Corpuscular Hemoglobin 26.6 pg (28.0-32.0); Mean Corpuscular Hgb Conc. 31.7 g/dL (32.0-36.0); Monocytes # (auto) 0.8 10 ^3/uL (0-1.3); Monocytes % (auto) 6.7 % (0.0-12.0); Neutrophils # (auto) 8.7 10 ^3/uL (1.6-8.6); Neutrophils % (auto) 76.5 % (37.0-80.0); Nucleated Red Blood Cells % 0.2 %; Red Blood Cells 3.85 10^6/uL (4.5-5.90); Red Cell Distribution Width 17.1 % (11.8-14.3); White Blood Cell 11.4 10^3/uL (4.4-10.8)
[2022-03-11] MEDS: SODIUM CHLORIDE 0.9% 1,000 ML IV SCH ×2 (08:15→18:19)
[2022-03-11 09:00] VITALS: BP 143/80
[2022-03-11] MEDS ORDERED: ENOXAPARIN SOD 40 MG/0.4 ML SYRINGE SC SCH (10:00)
[2022-03-11] MEDS ORDERED: PIOGLITAZONE HYDROCHLORIDE 30 MG TAB PO SCH (10:00)
[2022-03-11] MEDS: DAKINS QUARTER STR 0.125% (NaHypochlorite) 473 ML TOPICAL SOL TOP SCH ×2 (10:26→22:12)
[2022-03-11] MEDS: METOPROLOL TARTRATE 50 MG TAB PO SCH ×2 (10:28→21:41)
[2022-03-11] MEDS: ISOSORBIDE MONONITRATE ER 60 MG TAB PO SCH (10:30)
[2022-03-11] MEDS: ENOXAPARIN SOD 30 MG/0.3 ML SYRINGE SC SCH (10:31)
[2022-03-11] MEDS: amLODIPine BESYLATE 5 MG TAB PO SCH (10:31)
[2022-03-11 13:00] VITALS: BP 98/59
[2022-03-11] MEDS ORDERED: LISI-716 PO (15:58)
[2022-03-11 16:50] VITALS: BP 143/74
[2022-03-11 22:00] VITALS: BP 131/74
[2022-03-12] MEDS: SODIUM CHLORIDE 0.9% 1,000 ML IV SCH ×2 (03:26→14:30)
[2022-03-12 05:00] VITALS: BP 146/68
[2022-03-12] MEDS: ACCU-CHEK COMFORT CURVE STRIP VI SCH ×4 (06:00→21:30)
[2022-03-12] MEDS: hydrALAZINE HCL 25 MG TAB PO SCH ×3 (06:01→18:11)
[2022-03-12] MEDS: InsuLIN REG 1unit/0.01ml Soln (100units/ml) SC SCH ×4 (06:01→21:31)
[2022-03-12 06:41] LABS: BUN/Creatinine Ratio 7.8; Calcium 7.5 mg/dL (8.5-10.1); Potassium 4.2 mmol/L (3.5-5.1)
[2022-03-12 08:24] VITALS: BP 143/72
[2022-03-12 09:00] VITALS: BP 153/72
[2022-03-12 09:47] LABS: Hepatitis B Surface Antibody Negative (Negative)
[2022-03-12] MEDS: ALLOPURINOL 100 MG TAB PO SCH (10:21)
[2022-03-12] MEDS: ENOXAPARIN SOD 30 MG/0.3 ML SYRINGE SC SCH (10:21)
[2022-03-12] MEDS: ISOSORBIDE MONONITRATE ER 60 MG TAB PO SCH (10:22)
[2022-03-12] MEDS: METOPROLOL TARTRATE 50 MG TAB PO SCH ×2 (10:22→21:31)
[2022-03-12] MEDS: amLODIPine BESYLATE 5 MG TAB PO SCH (10:23)
[2022-03-12] MEDS: DAKINS QUARTER STR 0.125% (NaHypochlorite) 473 ML TOPICAL SOL TOP SCH (10:24)
[2022-03-12 10:26] LABS: Hepatitis A Total Antibody Negative (Negative)
[2022-03-12 13:00] VITALS: BP 147/69
[2022-03-12] MEDS ORDERED: LINEZOLID 600MG/300ML 300 ML IV SCH (13:45)
[2022-03-12 14:17] LABS: Hepatitis A Ab IgM Negative
[2022-03-12 14:18] LABS: Hepatitis B Core IgM Negative
[2022-03-12 14:20] LABS: Hepatitis C Antibody Negative (Negative)
[2022-03-12 17:10] VITALS: BP 128/64
[2022-03-12 22:00] VITALS: BP 160/85
[2022-03-13] MEDS: hydrALAZINE HCL 25 MG TAB PO SCH ×3 (00:28→11:58)
[2022-03-13 05:00] VITALS: BP 146/63
[2022-03-13] MEDS: SODIUM CHLORIDE 0.9% 1,000 ML IV SCH ×2 (06:07→11:17)
[2022-03-13] MEDS: ACCU-CHEK COMFORT CURVE STRIP VI SCH ×3 (06:08→17:12)
[2022-03-13] MEDS: DAKINS QUARTER STR 0.125% (NaHypochlorite) 473 ML TOPICAL SOL TOP SCH ×2 (06:08→09:22)
[2022-03-13] MEDS: InsuLIN REG 1unit/0.01ml Soln (100units/ml) SC SCH ×3 (06:08→17:00)
[2022-03-13 09:00] VITALS: BP 141/66
[2022-03-13] MEDS: ISOSORBIDE MONONITRATE ER 60 MG TAB PO SCH (09:12)
[2022-03-13] MEDS: ALLOPURINOL 100 MG TAB PO SCH (09:21)
[2022-03-13] MEDS: METOPROLOL TARTRATE 50 MG TAB PO SCH (09:21)
[2022-03-13] MEDS: amLODIPine BESYLATE 5 MG TAB PO SCH (09:21)
[2022-03-13] MEDS: ENOXAPARIN SOD 30 MG/0.3 ML SYRINGE SC SCH (09:22)
[2022-03-13 12:55] VITALS: BP 116/66
[2022-03-13 14:12] LABS: BUN/Creatinine Ratio 7.1; Calcium 7.7 mg/dL (8.5-10.1); Potassium 4.3 mmol/L (3.5-5.1)
[2022-03-13] MEDS ORDERED: MET50T PO (15:35)
[2022-03-13] MEDS ORDERED: AML5T PO (15:35)
[2022-03-13] MEDS ORDERED: ISO60SRT PO (15:36)
[2022-03-13] MEDS ORDERED: HYDR25TA87 PO (15:36)
[2022-03-13 16:23] VITALS: BP 146/60
[2022-03-13 16:33] VITALS: BP 116/66
== END 2022-03-13 18:25 | disposition home or self-care (01) | DRG 469 ==
LOC: ER 21:10 → TELE 03-10 12:02 → TELE-WESTW 03-10 23:41
PROVIDERS: ADMIT Registered Nurse; ATTEND Internal Medicine
DX: N17.0 Acute kidney failure with tubular necrosis (principal); I12.0 Hypertensive chronic kidney disease with stage 5 chronic kidney disease or end stage renal disease; D63.1 Anemia in chronic kidney disease; E11.22 Type 2 diabetes mellitus with diabetic chronic kidney disease; L97.529 Non-pressure chronic ulcer of other part of left foot with unspecified severity; E11.621 Type 2 diabetes mellitus with foot ulcer; I16.1 Hypertensive emergency; Z20.822 Contact with and (suspected) exposure to COVID-19; E66.01 Morbid (severe) obesity due to excess calories; N18.5 Chronic kidney disease, stage 5; Z88.8 Allergy status to other drugs, medicaments and biological substances; Z83.3 Family history of diabetes mellitus; Z87.440 Personal history of urinary (tract) infections; Z68.36 Body mass index [BMI] 36.0-36.9, adult
CPT/HCPCS: 36415; 76700; 80048; 80053; 80074; 80202; 81001; 82550; 82570; 82962; 83520; 83540; 83550; 84100; 84156; 85025; 85610; 85652; 86038; 86160; 86256; 86704; 86706; 86708; 86803; 87077; 87186; 87205; 87340; 87426; 96365; 96375; G0378; J1815

== ENCOUNTER 2023-01-08 15:36 | Inpatient (IN) | payer MEDICAID ==
[~2023-01-08] VITALS: Ht 185.4 cm; Wt 109.1 kg
[~2023-01-08 15:36] MED LIST changes: -CIPR-173 PO; +HYDR25TA87 PO; +ISO60SRT PO
[2023-01-08] MEDS ORDERED: ACETAMINOPHEN 500 MG TAB PO ONE (17:15)
[2023-01-08 17:25] LABS: Basophils # (auto) 0 10 ^3/uL (0-0.2); Basophils % (auto) 0.3 % (0.0-2.0); Eosinophils # (auto) 0.2 10 ^3/uL (0-0.8); Eosinophils % (auto) 1.2 % (0.0-7.0); Hematocrit 30.3 % (41.0-53.0); Hemoglobin 9.8 g/dL (13.5-17.5); Lymphocytes # (auto) 0.7 10 ^3/uL (0.4-5.4); Lymphocytes % (auto) 5.2 % (10.0-50.0); Mean Corpuscular Hemoglobin 28.9 pg (28.0-32.0); Mean Corpuscular Hgb Conc. 32.3 g/dL (32.0-36.0); Mean Corpuscular Volume 89.5 fL (80.0-100.0); Monocytes # (auto) 0.9 10 ^3/uL (0-1.3); Monocytes % (auto) 7.2 % (0.0-12.0); Neutrophils # (auto) 11.4 10 ^3/uL (1.6-8.6); Neutrophils % (auto) 86.1 % (37.0-80.0); Red Blood Cells 3.38 10^6/uL (4.5-5.90); Red Cell Distribution Width 16.6 % (11.8-14.3); White Blood Cell 13.2 10^3/uL (4.4-10.8)
[2023-01-08 17:40] LABS: Albumin 2.6 g/dL (3.4-5.0); Calcium 7.3 mg/dL (8.5-10.1); Potassium 4.2 mmol/L (3.5-5.1)
[2023-01-08 17:44] LABS: BUN/Creatinine Ratio 5.9 (10.0-20.0); Bilirubin, Total 0.6 mg/dL (0.2-1.0); Total Protein 6.8 g/dL (6.4-8.2)
[2023-01-08] MEDS ORDERED: PIPERACILLIN-TAZOB 3.375GM 100 ML IV ONE (19:00)
[2023-01-08] MEDS ORDERED: VANCOMYCIN PER PHARMACY 0 MG IV SCH (19:00)
[2023-01-08] MEDS ORDERED: VANCOMYCIN 500 MG in D5W 5% 100 ML IV ONE (20:00)
[2023-01-08 21:20] VITALS: PULSE 101; RESP 16; O2SAT 95
[2023-01-08] MEDS ORDERED: NITROGLYCERIN 0.4 MG SL TAB SL PRN (22:00)
[2023-01-08] MEDS ORDERED: ACETAMINOPHEN 325 MG TAB PO PRN (22:00)
[2023-01-08] MEDS: METOPROLOL TARTRATE 50 MG TAB PO SCH ×2 (22:00→23:14)
[2023-01-08] MEDS ORDERED: MORPHINE SULFATE INJ 2 MG/ml SYRG IV PRN ×2 (22:00)
[2023-01-08] MEDS ORDERED: DOCUSATE SOD 100 MG CAP PO PRN (22:00)
[2023-01-08] MEDS ORDERED: ONDANSETRON HCL 4 MG/2 ML VIAL IV PRN (22:00)
[2023-01-08] MEDS: FAMOTIDINE (10MG/ML) 2ML VL IV SCH (23:12)
[2023-01-08] MEDS: ATORVASTATIN 20 MG TAB PO SCH (23:14)
[2023-01-08] MEDS: SODIUM CHLORIDE 0.9% 1,000 ML IV SCH (23:15)
[2023-01-09] MEDS: HYDROcodone-ACET 5/325MG TAB PO PRN ×2 (02:27→10:13)
[2023-01-09 06:06] LABS: Basophils # (auto) 0 10 ^3/uL (0-0.2); Basophils % (auto) 0.4 % (0.0-2.0); Eosinophils # (auto) 0.2 10 ^3/uL (0-0.8); Eosinophils % (auto) 1.7 % (0.0-7.0); Hematocrit 28.9 % (41.0-53.0); Hemoglobin 9.3 g/dL (13.5-17.5); Lymphocytes # (auto) 0.9 10 ^3/uL (0.4-5.4); Lymphocytes % (auto) 7.3 % (10.0-50.0); Mean Corpuscular Hemoglobin 28.7 pg (28.0-32.0); Mean Corpuscular Hgb Conc. 32.1 g/dL (32.0-36.0); Mean Corpuscular Volume 89.5 fL (80.0-100.0); Monocytes % (auto) 8.6 % (0.0-12.0); Neutrophils # (auto) 9.7 10 ^3/uL (1.6-8.6); Red Blood Cells 3.23 10^6/uL (4.5-5.90); Red Cell Distribution Width 16.6 % (11.8-14.3); White Blood Cell 11.8 10^3/uL (4.4-10.8)
[2023-01-09 06:18] LABS: Potassium 4.1 mmol/L (3.5-5.1)
[2023-01-09 06:20] VITALS: BP 142/79; PULSE 75; RESP 18; TEMP 98.5; O2SAT 99
[2023-01-09 06:26] LABS: Albumin 2.4 g/dL (3.4-5.0); BUN/Creatinine Ratio 6.1 (10.0-20.0); Bilirubin, Total 0.5 mg/dL (0.2-1.0); Calcium 7.1 mg/dL (8.5-10.1); Total Protein 6.2 g/dL (6.4-8.2)
[2023-01-09] MEDS ORDERED: NIFE1TAB30 PO (06:47)
[2023-01-09 08:00] VITALS: BP 151/78; PULSE 85; RESP 18; TEMP 98; O2SAT 100
[2023-01-09] MEDS ORDERED: VANCOMYCIN 1GM/250ML 250 ML IV ONE (09:00)
[2023-01-09] MEDS: METOPROLOL TARTRATE 50 MG TAB PO SCH ×2 (09:59→22:49)
[2023-01-09] MEDS: ASPirin 81 mg TAB PO SCH (09:59)
[2023-01-09] MEDS ORDERED: amLODIPine BESYLATE 5 MG TAB PO SCH (10:00)
[2023-01-09 11:51] LABS: Cholesterol 108 mg/dL (< 200); HDL Cholesterol 56 mg/dL (40-59); LDL Cholesterol 54 mg/dL (< 100); Triglycerides 37 mg/dL (< 150)
[2023-01-09 12:00] VITALS: BP 145/76; PULSE 69; RESP 18; TEMP 97.9; O2SAT 99
[2023-01-09 16:00] VITALS: BP 148/82; PULSE 77; RESP 18; TEMP 98.1; O2SAT 100
[2023-01-09] MEDS: FUROSEMIDE 40 MG/4 ML VIAL IV SCH (18:43)
[2023-01-09] MEDS: SODIUM CHLORIDE 0.9% 1,000 ML IV SCH ×2 (18:44→20:19)
[2023-01-09 22:00] VITALS: BP 153/82; PULSE 82; RESP 20; TEMP 98.6; O2SAT 94
[2023-01-09] MEDS: ATORVASTATIN 20 MG TAB PO SCH (22:49)
[2023-01-10] MEDS: hydrALAZINE HCL 20 MG/ML VL IV PRN ×3 (01:50→17:14)
[2023-01-10 05:00] VITALS: BP 157/88; PULSE 83; RESP 18; TEMP 98.4; O2SAT 99
[2023-01-10] MEDS: FUROSEMIDE 40 MG/4 ML VIAL IV SCH ×2 (05:51→18:26)
[2023-01-10 06:56] LABS: Anion Gap 8 (5-15); Calcium 7.5 mg/dL (8.5-10.1); Carbon Dioxide 23 mmol/L (21-32); Chloride 110 mmol/L (98-107); Glucose 69 mg/dL (74-106); Sodium 141 mmol/L (136-145)
[2023-01-10 06:58] LABS: BUN/Creatinine Ratio 6.2 (10.0-20.0); Blood Urea Nitrogen 49 mg/dL (7-18); GFR African American 9 mL/min; GFR Non-African American 8 mL/min
[2023-01-10 07:16] LABS: Magnesium 1.8 mg/dL (1.6-2.6); Phosphorus 4.1 mg/dL (2.5-4.90)
[2023-01-10 07:39] LABS: Urine Bacteria FEW /hpf (None Seen); Urine Blood 1+ /uL (Negative); Urine Clarity Clear (Clear); Urine Color Colorless (Yellow); Urine Hyaline Cast FEW /lpf (0 - 2); Urine Mucus FEW (None Seen); Urine Protein, UAD 2+ (Negative); Urine Specific Gravity 1.009 (1.001-1.035); Urine Urobilinogen Normal (Negative); Urine WBC 1 /hpf (0 - 3); Urine WBC Clumps PRESENT /hpf (None Seen); Urine pH 5.5 (5.0-8.0)
[2023-01-10 08:05] LABS: Protein, Urine 158.3 mg/dL (0.0-11.9)
[2023-01-10 09:27] VITALS: BP 153/77; PULSE 78; RESP 18; TEMP 98.4; O2SAT 99
[2023-01-10] MEDS ORDERED: amLODIPine BESYLATE 5 MG TAB PO ONE (09:30)
[2023-01-10] MEDS: ASPirin 81 mg TAB PO SCH (10:27)
[2023-01-10] MEDS: METOPROLOL TARTRATE 50 MG TAB PO SCH ×2 (10:27→21:39)
[2023-01-10] MEDS: amLODIPine BESYLATE 5 MG TAB PO SCH (10:30)
[2023-01-10] MEDS ORDERED: VANCOMYCIN 500 MG in D5W 5% 100 ML IV ONE ×2 (12:00→16:00)
[2023-01-10 13:00] VITALS: BP 159/76; PULSE 72; RESP 18; TEMP 97.6; O2SAT 95
[2023-01-10 17:10] VITALS: BP 167/85; PULSE 81; RESP 19; TEMP 97.9; O2SAT 100
[2023-01-10 20:00] VITALS: BP 135/78; PULSE 77; PULSE 81; RESP 19; TEMP 98.7; O2SAT 98
[2023-01-10] MEDS: ATORVASTATIN 20 MG TAB PO SCH (21:38)
[2023-01-10] MEDS: FAMOTIDINE (10MG/ML) 2ML VL IV SCH (21:39)
[2023-01-10 22:00] VITALS: BP 135/78; PULSE 77; RESP 19; TEMP 98.7; O2SAT 97
[2023-01-11 05:00] VITALS: BP 144/81; PULSE 74; RESP 18; TEMP 98.4; O2SAT 99
[2023-01-11] MEDS: FUROSEMIDE 40 MG/4 ML VIAL IV SCH (05:02)
[2023-01-11 05:54] LABS: Basophils # (auto) 0.1 10 ^3/uL (0-0.2); Basophils % (auto) 0.5 % (0.0-2.0); Eosinophils # (auto) 0.4 10 ^3/uL (0-0.8); Eosinophils % (auto) 3.3 % (0.0-7.0); Hematocrit 29.2 % (41.0-53.0); Hemoglobin 9.7 g/dL (13.5-17.5); Lymphocytes # (auto) 1.2 10 ^3/uL (0.4-5.4); Lymphocytes % (auto) 11.4 % (10.0-50.0); Mean Corpuscular Hemoglobin 29.5 pg (28.0-32.0); Mean Corpuscular Hgb Conc. 33.2 g/dL (32.0-36.0); Monocytes # (auto) 0.9 10 ^3/uL (0-1.3); Monocytes % (auto) 8.5 % (0.0-12.0); Neutrophils # (auto) 8.3 10 ^3/uL (1.6-8.6); Neutrophils % (auto) 76.3 % (37.0-80.0); Nucleated Red Blood Cells % 0.1 %; Red Blood Cells 3.29 10^6/uL (4.5-5.90); Red Cell Distribution Width 16.1 % (11.8-14.3); White Blood Cell 10.9 10^3/uL (4.4-10.8)
[2023-01-11 06:01] LABS: Potassium 4.1 mmol/L (3.5-5.1)
[2023-01-11 06:08] LABS: Albumin 2.2 g/dL (3.4-5.0); Bilirubin, Total 0.5 mg/dL (0.2-1.0); Calcium 7.6 mg/dL (8.5-10.1); Total Protein 6.4 g/dL (6.4-8.2)
[2023-01-11 09:00] VITALS: BP 166/81; PULSE 78; RESP 20; TEMP 98.3; O2SAT 100
[2023-01-11] MEDS: METOPROLOL TARTRATE 50 MG TAB PO SCH ×2 (09:19→22:11)
[2023-01-11] MEDS: ASPirin 81 mg TAB PO SCH (09:19)
[2023-01-11] MEDS: amLODIPine BESYLATE 5 MG TAB PO SCH (09:19)
[2023-01-11] MEDS ORDERED: amLODIPine BESYLATE 5 MG TAB PO SCH (10:00)
[2023-01-11 13:00] VITALS: BP 147/73; PULSE 77; RESP 16; TEMP 98.2; O2SAT 98
[2023-01-11] MEDS ORDERED: ERGOCALCIFEROL 50,000 UNIT(1.25MG) CAP PO SCH (16:45)
[2023-01-11] MEDS ORDERED: SODIUM FERR GLUC 62.5MG/5ML 125 MG in SODIUM CHL 0.9% 100 ML IV SCH (17:00)
[2023-01-11 17:02] VITALS: BP 141/73; PULSE 75; RESP 16; TEMP 98.6; O2SAT 100
[2023-01-11 17:35] LABS: % Iron Saturation 13.2 % (20-55)
[2023-01-11] MEDS: hydrALAZINE HCL 25 MG TAB PO SCH ×2 (19:08→22:07)
[2023-01-11 20:00] VITALS: BP 135/71; PULSE 74; RESP 18; TEMP 98.3; O2SAT 97
[2023-01-11] MEDS ORDERED: EPOETIN ALFA-EPBX 10,000 UNIT/1ML VIAL SC ONE (21:00)
[2023-01-11] MEDS: ATORVASTATIN 20 MG TAB PO SCH (22:07)
[2023-01-12] VITALS (7 sets, daily range): BP systolic 122–153; BP diastolic 63–82; PULSE 74–80; RESP 16–19; TEMP 97.8–98.3; O2SAT 95–99
[2023-01-12] MEDS: hydrALAZINE HCL 25 MG TAB PO SCH ×3 (05:45→22:12)
[2023-01-12] MEDS: FUROSEMIDE 40 MG/4 ML VIAL IV SCH (05:46)
[2023-01-12 07:08] LABS: Calcium 7.7 mg/dL (8.5-10.1); Potassium 4.3 mmol/L (3.5-5.1)
[2023-01-12 07:13] LABS: BUN/Creatinine Ratio 6.5 (10.0-20.0); Phosphorus 4.7 mg/dL (2.5-4.90)
[2023-01-12] MEDS: METOPROLOL TARTRATE 50 MG TAB PO SCH ×2 (09:58→22:13)
[2023-01-12] MEDS: ASPirin 81 mg TAB PO SCH (09:58)
[2023-01-12] MEDS: NIFEdipine ER 30 MG TAB PO SCH (09:58)
[2023-01-12] MEDS: VANCOMYCIN 500 MG in D5W 5% 100 ML IV SCH (11:41)
[2023-01-12] MEDS: SODIUM FERR GLUC 62.5MG/5ML 125 MG in SODIUM CHL 0.9% 100 ML IV SCH (15:17)
[2023-01-12] MEDS: FAMOTIDINE (10MG/ML) 2ML VL IV SCH (22:12)
[2023-01-12] MEDS: ATORVASTATIN 20 MG TAB PO SCH (22:13)
[2023-01-13] VITALS (7 sets, daily range): BP systolic 112–139; BP diastolic 52–74; PULSE 65–83; RESP 16–20; TEMP 98–98.6; O2SAT 94–98
[2023-01-13] MEDS: hydrALAZINE HCL 25 MG TAB PO SCH ×3 (05:50→23:02)
[2023-01-13 07:57] LABS: Potassium 4.2 mmol/L (3.5-5.1)
[2023-01-13 07:59] LABS: BUN/Creatinine Ratio 6.5 (10.0-20.0); Calcium 7.7 mg/dL (8.5-10.1)
[2023-01-13] MEDS: ASPirin 81 mg TAB PO SCH (09:39)
[2023-01-13] MEDS: METOPROLOL TARTRATE 50 MG TAB PO SCH ×2 (09:39→23:01)
[2023-01-13] MEDS: NIFEdipine ER 30 MG TAB PO SCH (09:39)
[2023-01-13] MEDS: FUROSEMIDE 40 MG/4 ML VIAL IV SCH (09:40)
[2023-01-13] MEDS ORDERED: BUPIVACAINE 0.25% INJ 50ML VIAL ONE (11:16)
[2023-01-13] MEDS ORDERED: LIDOCAINE 1% HCL (LOCAL ANESTH.) INJ 20ML MDV ONE (11:17)
[2023-01-13] MEDS ORDERED: MIDAZOLAM HCL 2MG/2ML 2ml VIAL (1mg/ml) ONE (12:00)
[2023-01-13] MEDS ORDERED: fentaNYL CITRATE 100 MCG/2 ML VL ONE (12:00)
[2023-01-13] MEDS ORDERED: DAKINS HALF STR 0.25% (NaHypochlorite) 473 ML TOPICAL SOL TOP ONE (13:30)
[2023-01-13] MEDS ORDERED: ONDANSETRON HCL 4 MG/2 ML VIAL ONE (13:39)
[2023-01-13] MEDS ORDERED: PROPOFOL 10 MG/ML 20 ML IV ONE (13:39)
[2023-01-13] MEDS: SODIUM FERR GLUC 62.5MG/5ML 125 MG in SODIUM CHL 0.9% 100 ML IV SCH (15:49)
[2023-01-13 15:50] LABS: Hematocrit 33.1 % (41.0-53.0); Hemoglobin 10.5 g/dL (13.5-17.5)
[2023-01-13] MEDS ORDERED: EPOETIN ALFA-EPBX 10,000 UNIT/1ML VIAL SC ONE (21:00)
[2023-01-13] MEDS: ATORVASTATIN 20 MG TAB PO SCH (23:00)
[2023-01-14 05:00] VITALS: BP 123/63; PULSE 74; RESP 20; TEMP 98.2; O2SAT 100
[2023-01-14] MEDS: hydrALAZINE HCL 25 MG TAB PO SCH ×2 (06:37→15:28)
[2023-01-14 06:41] LABS: Basophils # (auto) 0 10 ^3/uL (0-0.2); Basophils % (auto) 0.5 % (0.0-2.0); Eosinophils # (auto) 0.3 10 ^3/uL (0-0.8); Eosinophils % (auto) 3.6 % (0.0-7.0); Hemoglobin 9.6 g/dL (13.5-17.5); Lymphocytes % (auto) 11.2 % (10.0-50.0); Mean Corpuscular Hemoglobin 28.7 pg (28.0-32.0); Mean Corpuscular Hgb Conc. 31.9 g/dL (32.0-36.0); Mean Corpuscular Volume 90.1 fL (80.0-100.0); Monocytes # (auto) 0.7 10 ^3/uL (0-1.3); Monocytes % (auto) 8.5 % (0.0-12.0); Neutrophils # (auto) 6.7 10 ^3/uL (1.6-8.6); Neutrophils % (auto) 76.2 % (37.0-80.0); Nucleated Red Blood Cells % 0.2 %; Red Blood Cells 3.33 10^6/uL (4.5-5.90); Red Cell Distribution Width 16.1 % (11.8-14.3); White Blood Cell 8.7 10^3/uL (4.4-10.8)
[2023-01-14 06:59] LABS: BUN/Creatinine Ratio 6.9 (10.0-20.0); Calcium 7.5 mg/dL (8.5-10.1)
[2023-01-14 08:00] VITALS: PULSE 77; RESP 17; O2SAT 99
[2023-01-14 09:00] VITALS: BP 124/70; PULSE 73; RESP 17; TEMP 97.7; O2SAT 99
[2023-01-14] MEDS ORDERED: FERR-7 PO (09:15)
[2023-01-14] MEDS ORDERED: HYDR-4902 PO (09:15)
[2023-01-14] MEDS ORDERED: HYDR-4297 PO (09:15)
[2023-01-14] MEDS ORDERED: METO-158 PO (09:15)
[2023-01-14] MEDS ORDERED: CEPH500C PO (09:15)
[2023-01-14] MEDS ORDERED: CLIN300C70 PO (09:15)
[2023-01-14] MEDS ORDERED: FURO1TAB31 PO (09:15)
[2023-01-14] MEDS: FUROSEMIDE 40 MG/4 ML VIAL IV SCH (09:41)
[2023-01-14] MEDS: ASPirin 81 mg TAB PO SCH (09:44)
[2023-01-14] MEDS: NIFEdipine ER 30 MG TAB PO SCH (09:44)
[2023-01-14] MEDS: METOPROLOL TARTRATE 50 MG TAB PO SCH (09:44)
[2023-01-14] MEDS: VANCOMYCIN 500 MG in D5W 5% 100 ML IV SCH (09:54)
[2023-01-14] MEDS: SODIUM FERR GLUC 62.5MG/5ML 125 MG in SODIUM CHL 0.9% 100 ML IV SCH (12:25)
[2023-01-14 12:34] LABS: Hepatitis B Surface Antigen Negative (Negative)
[2023-01-14 12:35] LABS: Hepatitis A Ab IgM Negative; Hepatitis B Core IgM Negative; Hepatitis C Antibody Negative (Negative)
[2023-01-14 14:39] VITALS: BP 151/75; PULSE 77; TEMP 36.5
== END 2023-01-14 17:22 | disposition home or self-care (01) | DRG 720 ==
LOC: ER 15:36 → OVERFLOW 22:02 → CENTRAL 01-09 06:05
PROVIDERS: ADMIT Family Medicine; ATTEND Family Medicine
PROC: 0JBR0ZZ Excision of Left Foot Subcutaneous Tissue and Fascia, Open Approach (ICD-10-PCS; principal; 2023-01-13 12:50)
DX: A41.9 Sepsis, unspecified organism (principal); N17.9 Acute kidney failure, unspecified; I12.0 Hypertensive chronic kidney disease with stage 5 chronic kidney disease or end stage renal disease; N18.6 End stage renal disease; L97.529 Non-pressure chronic ulcer of other part of left foot with unspecified severity; D63.1 Anemia in chronic kidney disease; L03.116 Cellulitis of left lower limb; E66.9 Obesity, unspecified; M86.8X7 Other osteomyelitis, ankle and foot; D50.9 Iron deficiency anemia, unspecified; L02.612 Cutaneous abscess of left foot; G62.9 Polyneuropathy, unspecified; R80.9 Proteinuria, unspecified; E78.5 Hyperlipidemia, unspecified; S91.302A Unspecified open wound, left foot, initial encounter; X58.XXXA Exposure to other specified factors, initial encounter; Y93.89 Activity, other specified; Z68.31 Body mass index [BMI] 31.0-31.9, adult; Z83.3 Family history of diabetes mellitus; Z91.158 Patient's noncompliance with renal dialysis for other reason; Z89.432 Acquired absence of left foot; Y92.89 Other specified places as the place of occurrence of the external cause; Y99.8 Other external cause status
CPT/HCPCS: 36415; 71045; 73630; 73700; 73718; 76775; 80048; 80053; 80061; 80074; 80202; 81001; 82306; 82565; 82570; 82728; 82962; 83540; 83550; 83690; 83735; 83880; 83970; 84100; 84156; 84300; 85014; 85018; 85025; 86850; 86900; 86901; 87040; 87070; 87075; 87077; 87186; 87205; 93926; 96365; 96367; G0378; J2001; J2250; J2405; J2543; J2704; J3490; J7060